=== PATIENT | female | born 2000 | race Caucasian/White ===

== ENCOUNTER 2024-06-10 18:00 | Inpatient (IN) | payer OTHER ==
[2024-06-11] MEDS ORDERED: Ibuprofen 800 MG TAB PO PRN (20:37)
[2024-06-11] MEDS ORDERED: hydrALAZINE 20 MG/ML VIAL SLOW IVP PRN (20:37)
[2024-06-11] MEDS ORDERED: Tranexamic Acid 1,000 MG/10 ML VIAL IVP PRN (20:37)
[2024-06-11] MEDS ORDERED: HYDROcodone/Acetaminophen 5/325 mg Tablet PO PRN ×2 (20:37)
[2024-06-11] MEDS ORDERED: Methylergonovine 0.2 MG/ML VIAL IM PRN (20:37)
[2024-06-11] MEDS ORDERED: Diphenoxylate HCl/Atropine Tablet PO PRN ×2 (20:37)
[2024-06-11] MEDS ORDERED: Misoprostol 200 MCG TAB PR PRN (20:37)
[2024-06-11] MEDS ORDERED: Acetaminophen 500 MG TAB PO PRN (20:37)
[2024-06-11] MEDS ORDERED: Lidocaine 1% (PF) 30 ML VIAL SC PRN (20:37)
[2024-06-11] MEDS ORDERED: Promethazine HCl 25 MG/ML VIAL IM PRN (20:37)
[2024-06-11] MEDS ORDERED: Carboprost 250 MCG/ML AMP IM PRN (20:37)
[2024-06-11 20:41] VITALS: BMI 37.9
[2024-06-11] MEDS: Misoprostol 100 MCG TAB VAG SCH (21:11)
[2024-06-11 22:09] LABS: Hematocrit 33.9 % (34.9-44.5); Hemoglobin 12.1 g/dL (12.0-15.5); Mean Corpuscular HGB CONC 35.7 g/dL (32.0-36.0); Mean Corpuscular Hemoglobin 31.8 pg (27.0-33.0); Mean Corpuscular Volume 89.2 fL (81.6-98.3); Mean Platelet Volume 11.3 fL (7.4-10.4); Platelet Count 219 10x3/uL (150-450); RBC Distribution Width 12.9 % (11.5-14.5); White Blood Cell (WBC) Count 10.1 10x3/uL (3.5-10.5)
[2024-06-11 22:13] LABS: HBsAg Index 0.16 S/CO (0-0.99); Hep B Surf Ag - L&D Non-Reactive S/CO (NonReactive)
[2024-06-11 22:14] LABS: Syphilis Antibody Nonreactive (Nonreactive); Syphilis Antibody Index 0.05 S/CO (<1.00 Non-Reactive)
[2024-06-12] MEDS: fentaNYL 50 mcg/mL 1 mL Vial SLOW IVP PRN (04:09)
[2024-06-12] MEDS: Lactated Ringer's 1,000 ML IV SCH (04:25)
[2024-06-12] MEDS ORDERED: Lactated Ringer's 500 ML IV PRN (05:41)
[2024-06-12] MEDS ORDERED: Ondansetron PF 4 MG/2 ML Vial IVP PRN (05:41)
[2024-06-12] MEDS ORDERED: Acetaminophen 325 MG TAB PO PRN (05:41)
[2024-06-12] MEDS ORDERED: diphenhydrAMINE 50 MG/ML VIAL IVP PRN (05:41)
[2024-06-12] MEDS ORDERED: Promethazine HCl 25 MG/ML VIAL IM PRN (05:41)
[2024-06-12] MEDS ORDERED: ePHEDrine Sulfate 50 MG/10 ML VIAL SLOW IVP PRN (05:41)
[2024-06-12] MEDS ORDERED: Moisturizing Cream (Eucerin) 113 GM JAR TOP PRN (05:41)
[2024-06-12] MEDS ORDERED: Naloxone HCl 0.4 mg/ml Vial IVP PRN ×2 (05:41)
[2024-06-12] MEDS ORDERED: Communication Order-Pharmacy FS SCH (05:45)
[2024-06-12] MEDS: fentaNYL 2 mcg/Ropivacaine 0.2% Epidural 100 ML CADD EPIDURAL SCH (05:54)
[2024-06-12] MEDS: fentaNYL/Ropivacaine Epidural 100 ML ONE (06:22)
[2024-06-12] MEDS ORDERED: Bupivacaine/Epinephrine 0.25% 30 ML VIAL ONE (12:00)
[2024-06-12] MEDS: Ondansetron PF 4 MG/2 ML Vial IVP PRN (13:28)
[2024-06-12] MEDS: Oxytocin 30 units/NS 500 ML 500 ML IV SCH ×2 (14:50→16:21)
[2024-06-12] MEDS ORDERED: traMADol HCl 50 MG TAB PO PRN (17:28)
[2024-06-12] MEDS ORDERED: Benzocaine-Menthol 82.5 ML CAN TOP PRN (17:28)
[2024-06-12] MEDS ORDERED: Lanolin Ointment 7 GM TUBE TOP PRN (17:28)
[2024-06-12] MEDS ORDERED: hydrALAZINE 20 MG/ML VIAL SLOW IVP PRN (17:28)
[2024-06-12] MEDS ORDERED: Bisacodyl 10 MG SUPP PR PRN (17:28)
[2024-06-12] MEDS ORDERED: Milk Of Magnesia 30 ML UDCUP PO PRN (17:28)
[2024-06-12] MEDS: Boostrix 0.5 ML (Tdap) VIAL (>/=7 yrs of age) IM ONE (18:05)
[2024-06-12] MEDS: Ferrous Sulfate 325 MG TAB PO SCH (18:07)
[2024-06-12] MEDS: Docusate 100 MG CAP PO SCH (21:12)
[2024-06-12] MEDS: Ibuprofen 800 MG TAB PO SCH (21:12)
[2024-06-13] MEDS: Ferrous Sulfate 325 MG TAB PO SCH (07:58)
[2024-06-13] MEDS: Prenatal Vitamin 1 TAB PO SCH (09:49)
[2024-06-14] MEDS: Preparation H Ointment 28 GM TUBE PR PRN (05:55)
[2024-06-14 07:31] VITALS: BP 120/80; TEMP 98
== END 2024-06-14 11:55 | disposition home or self-care (01) | DRG 807 ==
LOC: CSHLD 06-11 19:43 → CSHPP 06-12 17:35
PROVIDERS: ADMIT Obstetrics & Gynecology; ATTEND Obstetrics & Gynecology
PROC: 10E0XZZ Delivery of Products of Conception, External Approach (ICD-10-PCS; principal; 2024-06-12)
PROC: 0KQM0ZZ Repair Perineum Muscle, Open Approach (ICD-10-PCS; 2024-06-12)
DX: O24.429 Gestational diabetes mellitus in childbirth, unspecified control (principal); Z37.0 Single live birth; Z3A.39 39 weeks gestation of pregnancy; O69.81X0 Labor and delivery complicated by cord around neck, without compression, not applicable or unspecified; O70.1 Second degree perineal laceration during delivery
CPT/HCPCS: 36415; 36416; 51702; 85027; 86780; 86850; 86900; 86901; 87340; J2405; J2590; J3010; J7120